=== PATIENT | female | born 1990 | race Asian ===

== ENCOUNTER 2019-01-10 20:49 | Emergency (ER) | payer BC ==
[~2019-01-10] VITALS: Ht 152.4 cm; Wt 51.7 kg
[2019-01-10 21:10] VITALS: Ht 152.4 cm; Wt 51.7 kg
[2019-01-10 23:07] LABS: BASOPHIL % 0.4 % (0-2); PLATELET COUNT 288 x10^3mcL (130-400); RED CELL DISTRIBUTION WIDTH 13.4 % (11.5-14.5)
[2019-01-10 23:22] LABS: CALCIUM 9.2 mg/dL (8.5-10.1); CARBON DIOXIDE 28.5 mmol/L (21-32); CHLORIDE SERUM 104 mmol/L (98-107); CREATININE SERUM 0.6 mg/dL (0.6-1.0); GFR1 > 60 mL/min; GLUCOSE SERUM 96 mg/dL (74-106); POTASSIUM SERUM 3.9 mmol/L (3.5-5.1); SODIUM SERUM 142 mmol/L (136-145)
[2019-01-10 23:26] LABS: ALBUMIN 3.8 g/dL (3.4-5.0); ALKALINE PHOSPHATASE 81 U/L (46-116); ALT/SGPT 35 U/L (14-59); AMYLASE 36 U/L (25-115); AST/SGOT 17 U/L (15-37); BILIRUBIN TOTAL 0.3 mg/dL (0.20-1.00); LIPASE 112 IU/L (73-393); TOTAL PROTEIN, SERUM 7.5 g/dL (6.4-8.2)
[2019-01-11 00:31] VITALS: BP 125/73
== END 2019-01-11 00:31 | disposition home or self-care (01) ==
LOC: ED 20:49
PROVIDERS: Specialist
DX: K59.00 Constipation, unspecified (principal)
CPT/HCPCS: 36415